=== PATIENT | male | born 1980 | race Caucasian/White ===

== ENCOUNTER → 2021-09-06 | Outpatient (CLI) | payer OTHER | LOC: COL.VAS 08-10 13:30 | DX: I51.7 Cardiomegaly (principal) ==

== ENCOUNTER 2021-11-25 05:52 | Day surgery (SDC) | payer OTHER ==
[~2021-11-25] VITALS: Ht 184.2 cm; Wt 98.2 kg
[2021-11-25 06:08] VITALS: BP 137/95; PULSE 70; TEMP 98.1
[2021-11-25] MEDS ORDERED: PROAIR HFA0.09 MG/AC IH (06:12)
[2021-11-25] MEDS ORDERED: RT ADVAIR HFA 1112 G IH (06:12)
[2021-11-25 07:35] VITALS: BP 121/85; PULSE 74; TEMP 97.8
--- NOTE | 2021-11-25 07:48 | NUR ---
0735 - PT arrives w/ Derek PERKINS from procedure room; PT drowsy but oriented, assited from cart to chair via ambulation 1:1. Monitors applied and vital obtained. PT denies nausea, but states some discomfort in ULQ. PT oriented to room and call castellon, within reach. PT provided with ice water and applesauce per request. is present. 0747 - is speaking w/ PT.
[2021-11-25 07:50] VITALS: BP 121/83; PULSE 74
--- NOTE | 2021-11-25 07:53 | NUR ---
0750 - VSS. PT continues to deny nausea and states discomfort has improved. PT expressed desire to be discharged. Call castellon remains within reach if needed. PT has had half his applesauce and continues to drink his water.
[2021-11-25 08:05] VITALS: BP 120/87; PULSE 74
--- NOTE | 2021-11-25 08:05 | NUR ---
VSS. IV discontinued. Catheter tip intact. Pressure bandage applied. NO redness or swelling noted. DC instructions and educational material reviewed with the PT and his , who verbalized understanding and signed the realted paperwork. Questions answered to PT satisfaction. PT refused RN assistance chaging, call castellon remains within reach if needed.
--- NOTE | 2021-11-25 08:08 | NUR ---
PT dismissed from endo via wheelchair to the PT entrence by Lita PERKINS. PT has DC packet and personal belongigns and was transferred into the care of his , who is driving private car.
== END 2021-11-25 08:08 | disposition home or self-care (01) ==
LOC: SDCO 05:52
DX: K52.9 Noninfective gastroenteritis and colitis, unspecified (principal); K64.0 First degree hemorrhoids; F17.210 Nicotine dependence, cigarettes, uncomplicated
CPT/HCPCS: J2704; J7030

== ENCOUNTER 2022-07-28 06:05 | Day surgery (SDC) | payer OTHER ==
[~2022-07-28] VITALS: Ht 188 cm; Wt 100.1 kg
[~2022-07-28 06:05] MED LIST: PROAIR HFA0.09 MG/AC IH; RT ADVAIR HFA 1112 G IH
[2022-07-28 06:19] VITALS: BP 138/96; PULSE 76; TEMP 97.7
[2022-07-28 07:35] VITALS: BP 135/88; PULSE 71; TEMP 97.9
[2022-07-28 07:50] VITALS: BP 112/85; PULSE 64
[2022-07-28 08:05] VITALS: BP 115/88; PULSE 72
--- NOTE | 2022-07-28 08:20 | NUR ---
0735-PT TO BAY 2 PER CART FROM PROCEDURE ROOM. PT AMBULATED WITH ASSISTANCE TO CHAIR. REPORT RECEIVED. VS OBTAINED. CALL LIGHT WITHIN REACH. PT DENIES ANY NEEDS AT THIS TIME. 0742-PT TOLERATING JUICE AND APPLESAUCE. 0800-DR GUERRA IN ROOM VISITING WITH PT AND HIS . 0810-IV DC'D AT THIS TIME. PT DRESSED WITHOUT ASSISTANCE. 0815-DISCHARGE EDUCATION COMPLETED WITH PT AND HIS . VERBALIZED UNDERSTANDING OF HOME AND FOLLOW UP CARE. ALL QUESTIONS ANSWERED. DISCHARGE PAPERWORK GIVEN TO PT. 0820-PT OFF UNIT PER WHEELCHAIR. PT DISCHARGED TO HOME WITH PER PERSONAL VEHICLE.
== END 2022-07-28 08:20 | disposition home or self-care (01) ==
LOC: SDCO 06:05
DX: K52.3 Indeterminate colitis (principal); K92.1 Melena; K64.1 Second degree hemorrhoids; R19.4 Change in bowel habit; Z87.891 Personal history of nicotine dependence
CPT/HCPCS: J2704; J3010; J7120